=== PATIENT | female | born 1955 | race Caucasian/White ===

== ENCOUNTER 2022-03-26 15:53 | Emergency (ER) | payer MEDICAID ==
[~2022-03-26] VITALS: Ht 152.4 cm; Wt 63.0 kg
[~2022-03-26 15:53] MED LIST: ALPR2TAB2 PO; CYCL-1 PO; ESCI20TA16 PO; HYDR-4353 PO; HYDR-4383 PO; LISI10TA27 PO; LITH150C8 PO; MELO7.5T12 PO; QUET-1 PO
[2022-03-26 18:22] VITALS: BP 140/87
== END 2022-03-26 18:30 | disposition home or self-care (01) ==
LOC: ER 17:51
DX: S93.401A Sprain of unspecified ligament of right ankle, initial encounter (principal); G89.29 Other chronic pain; M19.90 Unspecified osteoarthritis, unspecified site; Z56.0 Unemployment, unspecified; Z72.89 Other problems related to lifestyle; Z60.2 Problems related to living alone; Z88.8 Allergy status to other drugs, medicaments and biological substances; Z79.899 Other long term (current) drug therapy
CPT/HCPCS: 73610; 99283